=== PATIENT | female | born 1960 | race Caucasian/White ===

== ENCOUNTER 2017-06-12 07:34 | Observation (INO) ==
--- OUTSIDE RECORDS SUMMARY | 2017-06-12 07:41 | External Medical Summary | Continuity of Care Document ---
:1960 Author Organization [facility] Address [address] [place], [place] [id number] Phone Care Team Providers Name Role Phone Berny Bynum MD Unavailable Unavailable Allergies, Adverse Reactions, Alerts Substance Reaction Severity Status Substance Type Unknown Medications Medication Instructions Dosage Effective Dates Status Comments (start - stop) Osphena 60 mg tablet take 1 tablet by oral 60 MG - Active route every day with food Problems Condition Effective Dates (start - stop) Clinical Status Superficial (introital) dyspareunia Postmenopausal atrophic vaginitis Procedures Procedure Date Office/outpatient visit,[facility] Results Test Name Date and Time Measure Units Reference Range Abnormal Flag Comments Unknown Advance Directives Directive Yes / No Effective Date File Name Unknown Encounters Encounter Practice Location Reason(s) Diagnoses Date Provider Care Description For Visit Team Members Office/outpa Associates [facility] West vaginal Superficial Hild tient In Womens dryness (introital) 5-201 [facility] (chief dyspareuniaPostmenopa [address]) usal atrophic [place], 1522, hernia vaginitis [place], [place], complaint) [id number], , [place]. [place] tel: [phone] Family History Family Member Diagnosis Age At Onset No family history of Ovarian Cancer No family history of Epilepsy Paternal Grandmother Cardiovascular Disease Sister Lung Disease Father Hypertension No family history of Thyroid Disorder Mother Cardiovascular Disease Father Colon Cancer Mother Hypertension Paternal Grandmother Hypertension Maternal Grandfather Colon Cancer Maternal Grandmother Uterine Cancer Paternal Grandfather Cardiovascular Disease Brother Kidney Disease Maternal Grandmother Stroke No family history of Breast Cancer Maternal Grandfather Diabetes Paternal Grandfather Hypertension Sister Osteoporosis Immunizations Vaccine Date Status Comments Unknown Payers Payer name Insurance type Covered constitution party ID Authorization(s) John [id number] Social History Type Description Quantity Date Captured Alcohol Use Details No Caffeine Use Details coffee 2 cups per day Tobacco Use Status Never smoked tobacco Smoking Status Never smoker Vital Signs Date / Height Weight BMI Pulse Blood Temperature Respiratory Body Head BMI Time: Rate Pressure Rate Surface Circumference percentile Area 61.00 115.80 21.8 / in lbs 8 mm[Hg] 2:00 kg/m PM eter (2) Chief Complaint And Reason For Visit Most recent encounter only, dated '04/16/2017 14:15'. vaginal dryness ( chief complaint). Description: She is also experiencing hot flashes, vaginal dryness and weight loss. Pertinent negatives include abdominal pain, bladder problems, bone pain, diaphoresis, menorrhagia, insomnia, irregular menses, mood swings, nipple discharge, palpitations, thinning hair and weight g Does WWE with her PCP. Was on vaginal cream and it make her very depressed while onit. Went to [facility] they did bloodwork it showed that she wasnt to low on hormones. Having lots ofpain with intercourse and vaginal dryness.She took vaginal estrogen and had depression from it. When she took it she " filled up the tube" and thought it was messy and that she had a lot of it come out after placing. It helped with dryness. May have taken osphena prior but cannot remember details.hernia (chief complaint). Description: Thinks that she may have a hernia. Feels a lump with exercise. No pain. Reason For Referral Reason For Referral Unknown Plan Of Care Date Type Action Status Goal Lifestyle education regarding diet completed Appointment Sameera Gooden BOOKED Date Type Problem Goal Intervention Status Start Date Unknown. History Of Present Illness Encounter Date Complaint History Of Present Illness vaginal dryness She is also experiencing hot flashes, vaginal dryness and weight loss. Pertinent negatives include abdominal pain, bladder problems, bone pain, diaphoresis, menorrhagia, insomnia, irregular menses, mood swings, nipple discharge, palpitations, thinning hair and weight maddie Does WWE with her PCP. Was on vaginal cream and it make her very depressed while on it. Went to [facility] they did bloodwork it showed that she wasnt to low on hormones. Having lots of pain with intercourse and vaginal dryness.She took vaginal estrogen and had depression from it. When she took it she "filled up the tube" and thought it was messy and that she had a lot of it come out after placing. It helped with dryness. May have taken osphena prior but cannot remember details. hernia Thinks that she may have a hernia. Feels a lump with exercise. No pain. Functional Status Encounter Date Functional Assessment Cognitive Assessment Unknown Medications Administered Medication Instructions Dosage Effective Dates (start - stop) Status Comments Drug Treatment Unknown Instructions Date Instruction Additional Information Lifestyle education regarding diet Related to Body mass index 21.0-21.9 Giving encouragement to exercise Related to Body mass index 21.0- 21.9
--- OUTSIDE RECORDS SUMMARY | 2017-06-12 07:41 | External Medical Summary | Continuity of Care Document ---
:1960 Author Organization [facility] Address [address] [place], [place] [phone] Phone Care Team Providers Name Role Phone [...] Postmenopausal atrophic vaginitis Procedures Procedure Date Office/outpatient visit,[facility] Results Test Name Date and Time Measure Units Reference Range Abnormal Flag Comments Unknown Advance Directives Directive Yes / No Effective Date File Name Unknown Encounters Encounter Practice Location Reason(s) Diagnoses Date Provider Care Description For Visit Team Members Office/outpa [facility] West vaginal Superficial Hild tient In Womens dryness (introital) 5-201 [facility]. [facility], (chief dyspareuniaPostmenopa [address] complaint) usal atrophic [place], 1522, hernia vaginitis [place], ([place], complaint) [id number], , [place]. [place] tel: [phone] Family History Family Member Diagnosis Age At [...] Unknown Payers Payer name Insurance type Covered green party ID Authorization(s) John [id number] Social History Type Description Quantity Date Captured [...]
--- OUTSIDE RECORDS SUMMARY | 2017-06-12 07:41 | External Medical Summary | Continuity of Care Document ---
:1960 Author Organization [facility] Allergies Medications Medication Packaging Start Date Stop Date Route Dosage Sig Tablet 04/16/2017 OSPHENA take 1 tablet by oral route every day with food Problems Procedures Results Encounters ACCT No. Visit Discharge Status Pt. Type Provider Facility Loc./Unit Complaint Date/Time [id number] 04/16/2017 04/16/2017 [facility]LS Outpatient [place], 14:15:00 23:59:59 Carol Golden [id number] 04/16/2017 04/16/2017 CLS Outpatient [place], 08:40:00 23:59:59 Henrry Greer
--- OUTSIDE RECORDS SUMMARY | 2017-06-12 07:41 | External Medical Summary | Continuity of Care Document ---
:1960 Author Organization [facility] Address [address] [place], [place] [phone] Phone Care Team Providers Name Role Phone [...] dyspareunia Postmenopausal atrophic vaginitis Procedures Procedure Date Unknown Results Test Name Date and Time Measure Units Reference Range Abnormal Flag Comments Unknown Advance Directives Directive Yes / No Effective Date File Name Unknown Encounters Encounter Practice Location Reason(s) Diagnoses Date Provider Care Description For Visit Team Members Associates [facility] Superficial [place]ild In [facility] [address] (introital) [facility]. Replaced by [facility], dyspareuniaPostmenopa [address] usal atrophic [place], [address], vaginitis [place], [place], [place], [id number], , [place]. [place] tel: tel:[phone] [facility] [place] [facility] [address] Henrry. [employer], [address] [place], [place], [place], [place], [id number], , [place]. [place] tel: tel:[phone] Family History Family Member Diagnosis Age At [...] Insurance type Covered green party ID Authorization(s) [facility] [id number] Social History Type Description Quantity Date Captured Alcohol Use Details No Caffeine Use Details coffee 2 cups per day Tobacco Use Status Never smoked tobacco Smoking Status Never smoker Non-Smoking Tobacco Use : No Details Available : No Details Available Details Vital Signs Date / Height Weight BMI Pulse Blood Temperature Respiratory Body Head BMI Time: Rate Pressure Rate Surface Circumference percentile Area Unknown Chief Complaint And Reason For Visit Unknown Chief Complaint And Reason For Visit Reason For Referral Reason For Referral Unknown Plan Of Care Date Type Action Status Goal Lifestyle education regarding diet completed Appointment Sameera Gooden BOOKED Date Type Problem Goal Intervention Status Start Date Unknown. History Of Present Illness Encounter Date Complaint History Of Present Illness This patient has no known history of present illness Functional Status Encounter Date Functional Assessment Cognitive Assessment Unknown Medications Administered Medication Instructions Dosage Effective Dates (start - stop) Status Comments Drug Treatment Unknown Instructions Date Instruction Additional Information Lifestyle education regarding diet Related to Body mass index 21.0-21.9 Giving encouragement to exercise Related to Body mass index 21.0- 21.9
[2017-06-12 08:33] VITALS: RESP 16
[2017-06-12 08:44] VITALS: BMI 19.8
--- NOTE | 2017-06-12 09:53 | Cardiology History & Physical ---
History of Present Illness Chief complaint: atrial fibrillation HPI: Sameera is a 57 year old female who is known to Dr. Garza with a history of PVCs and a new onset of atrial fibrillation with RVR seen on GUMARO monitor. She is being admitted to observation for antiarrhythmic therapy on Flecainide. Review of Systems - Constitutional Constitutional: Absent: chills, fever(s) - EENMT Eyes: Absent: change in vision Balance: Absent: vertigo Mouth/Throat: Absent: sore throat, scratchy throat - Cardiovascular Cardiovascular: Present: palpitations. Absent: chest pain, syncope, dyspnea on exertion, orthopnea - Respiratory Respiratory: Present: cough (when has afib) - Gastrointestinal Gastrointestinal: Absent: abdominal pain, constipation, nausea, vomiting - Genitourinary Genitourinary: Absent: dysuria - Musculoskeletal Musculoskeletal: Present: myalgias (bilateral legs) - Integumentary/Breasts Integumentary: Absent: rash - Neurological Neurological: Absent: dizziness - Endocrine Endocrine: Present: palpitations PFSH PVCs AFib Surgical History: Esophagus surgery Family History: Mother - AFib Paternal uncle - [place] - Social History Smoking status: Never smoker Substance use type: does not use Alcohol intake frequency: does not drink Household members: spouse Current occupational status: unemployed Current residence: Apartment/Private Home Medications Allergies Allergy/AdvReac Type Severity Reaction Status Date / Time tramadol [From Ultram] Allergy Unknown Rash Verified 06/12/17 09:06 Penicillins Allergy Verified 06/12/17 09:05 Sulfa (Sulfonamide Allergy Rash Verified 06/12/17 09:05 Antibiotics) acetaminophen [From Percocet] AdvReac Verified 06/12/17 09:04 minocycline AdvReac Dizziness Verified 06/12/17 09:10 morphine AdvReac Migraine Verified 06/12/17 09:09 oxycodone [From Percocet] AdvReac Verified 06/12/17 09:04 ZYZAL Allergy Rash Uncoded 06/12/17 09:08 Exam Vital signs: Temperature 96.3 F L 06/12/17 08:32 Pulse Rate 59 L 06/12/17 08:32 Respiratory Rate 16 06/12/17 08:32 Blood Pressure 121/60 06/12/17 08:32 Pulse Oximetry 100 06/12/17 08:32 - Constitutional no acute distress, thin, cooperative - Routine HEENT Exam Head: Present: normocephalic ENT: Present: mucous membranes moist - Routine Neck Exam Absent: JVD, carotid bruit - Routine Chest/Breast/Axilla Exam Chest wall: Absent: tenderness - Routine Respiratory Exam Present: CTA bilaterally. Absent: rales, crackles - Routine Cardiovascular Exam Present: RRR, no murmur. Absent: JVD - Routine Abdominal Exam Present: soft, normoactive bowel sounds - Routine Extremities Exam Present: no edema - Detailed Extremities Exam: Vascular Peripheral pulses: 2+ dorsalis pedis (L), 2+ dorsalis pedis (R) - Routine Skin Exam Present: intact - Routine Neurological Exam Present: alert, oriented X3 - Routine Psychiatric Exam Present: normal affect, normal thought process Results 06/12/17 08:03 06/13/17 04:20 Cardiac Enzymes 06/12/17 06/12/17 Range/Units 08:03 08:03 AST 24 (14-36) U/L Troponin I < 0.012 (0-0.12) ng/ml CBC 06/12/17 Range/Units 08:03 WBC 5.4 (4.5-11.0) T/MM3 RBC 4.36 (4.00-5.20) M/MM3 Hgb 13.0 (12-16) GM/DL Hct 39.3 (36-46) % Plt Count 132 (130-400) T/MM3 Neut # 2.6 (1.8-7.7) T/MM3 Lymph # 2.1 (1-4.8) T/MM3 Park # 0.6 (0-0.8) T/MM3 Eos # 0.1 (0-0.5) T/MM3 Baso # 0.0 (0-0.2) T/MM3 Comprehensive Metabolic Panel 06/12/17 Range/Units 08:03 Sodium 143 (134-144) MEQ/L Potassium 3.6 (3.6-5) MEQ/L Chloride 107 (98-107) MEQ/L Carbon Dioxide 29 (22-30) MEQ/L BUN 20.0 H (7-17) MG/DL Creatinine 1.0 (0.7-1.2) MG/DL Glucose 79 (65-110) MG/DL Calcium 9.3 (8.4-10.2) MG/DL AST 24 (14-36) U/L ALT 26 (9-52) U/L Alkaline Phosphatase 52 (38-126) U/L Total Protein 7.1 (6.3-8.2) G/DL Albumin 4.2 (3.5-5.0) G/DL Intake and Output 06/11/17 06/12/17 06/12/17 22:59 06:59 14:59 Other: Weight 115 lb 11.883 oz Patient Weight 06/13/17 06:59 Weight 115 lb 11.883 oz - Imaging and Cardiology Echo: report reviewed EKG interpretations - EKG EKG results cardiology: sinus rhythm - Dysrhythmias Supraventricular dysrhythmia: ectopic atrial rhythm Hospital Course This is a general summary of the patient's hospital course. For more details refer to the complete medical record. DVT Prophylaxis: Lovenox Assessment and Plan - Attestation Attestation Narrative: 06/14/17 14:08 Recommendation After examining the patient I agree with the above assessment. I am involved in the formulation of the patient's plan of care. - Assessment and Plan (1) Paroxysmal atrial fibrillation Status: Acute Admitted to observation for antiarrhythmic therapy on Flecainide. Continue to monitor cardiac telemetry, labs and repeat EKG. Aspirin 81mg daily to prevent stroke. (2) Ventricular premature complexes Status: Acute Sepsis Assessment - Evaluation Sepsis screening result: No Definite Risk
[2017-06-12] MEDS: FLECAINIDE 50 MG TABLET PO SCH ×2 (10:19→21:43)
[2017-06-12] MEDS: ASPIRIN *EC* 81 MG TABLET PO SCH (16:27)
[2017-06-12] MEDS: OSPHENA 60 MG PO SCH (16:28)
[2017-06-12] MEDS ORDERED: SALINE FLUSH 10ml SYRINGE IV PRN (21:46)
[2017-06-13 07:56] VITALS: BP 114/68; PULSE 63; TEMP 96; O2SAT 100
[2017-06-13] MEDS: FLECAINIDE 50 MG TABLET PO SCH (09:09)
[2017-06-13] MEDS: ASPIRIN *EC* 81 MG TABLET PO SCH (09:09)
[2017-06-13] MEDS: OSPHENA 60 MG PO SCH (09:09)
--- NOTE | 2017-06-13 10:12 | Discharge Instructions ---
<Mavis Solomon - Last Filed: 06/13/17 09:59> Discharge Plan - Med Rec/Dispo Referrals/Follow Up: Moise Garza MD [Physician] - 06/20/17 11:40 am (Follow up appt on 2016 at 11:40 am) Fabiana Instructions: A-fib (Atrial Fibrillation) (DC) Additional Instructions: Keep scheduled stress test appointment next week. Prescriptions: New Flecainide [Tambocor] 50 mg PO Q12HR #60 tab Continue Aspirin *EC* [Ecotrin] 1 tab PO DAILY Loratadine 1 tab PO PRN PRN PRN Reason: Allergy Symptoms Prednisolone Acetate 1 drop EACH EYE DAILY Potassium Iodide Solution 2 drops PO DAILY Magnesium Oxide,Aspartate,Citr [Triple Magnesium Complex] 1 tab PO DAILY Ospemifene [Osphena] 1 tab PO DAILY [place] 1 tab PO WEEKLY Biotin 1 tab PO DAILY Levothyroxine Tab [Synthroid] 0.5 tab PO ACB Astaxanthin 1 tab PO DAILY Mansi And Tumeric 1 tab PO DAILY - Disposition 01 Discharged Home, Self-Care <Moise Garza - Last Filed: 06/14/17 14:14> Discharge Plan - Med Rec/Dispo - Attestation Attestation Narrative: 06/14/17 14:14 Recommendation After examining the patient I agree with the above assessment. I am involved in the formulation of the patient's plan of care.
== END 2017-06-13 10:45 | disposition home or self-care (01) ==
LOC: CATH 07:34 → SRG 07:34 → MED 07:38 → EDSTATUS 08:00 → CATH 06-13 10:45 → UNDODEPCLI 06-14 10:03
PROVIDERS: ADMIT Internal Medicine Cardiovascular Disease; ATTEND Internal Medicine Cardiovascular Disease